=== PATIENT | female | born 1995 | race Caucasian/White ===

== ENCOUNTER 2018-11-08 02:19 | Emergency (ER) | payer OTHER ==
[2018-11-08] MEDS ORDERED: KETOROLAC 30 MG/ML 1 ML VIAL IVP STA (02:50)
[2018-11-08] MEDS ORDERED: SODIUM CHLORIDE 0.9% 1,000 ML IV ONE (02:50)
--- NOTE | 2018-11-08 03:07 | ED ---
ENT HPI - General Chief complaint: ENT Stated complaint: Joint Pain Source: patient Mode of arrival: ambulatory Limitations: no limitations - History of Present Illness Initial comments: Patient is a previously healthy 23yo who presents to the ER today for evaluation of generalized body aches, sore throat and malaise. Patient reports that yesterday during the day she began having body aches, she reports generalized aching of her entire body. This evening she reports again feeling febrile, her throat was sore she looked in the mirror noted that her tonsils seem to be enlarged she also felt that her neck seemed stiff. Review of Systems ROS Statement: Those systems with pertinent positive or pertinent negative responses have been documented in the HPI. ROS Other: All systems not noted in ROS Statement are negative. Past Medical History Additional Past Medical History / Comment(s): HEart murmur Past Surgical History: No Surgical Hx Reported Past Psychological History: Depression Smoking Status: Never smoker Past Alcohol Use History: None Reported Past Drug Use History: None Reported General Exam - General Exam Comments Initial Comments: Physical Exam GENERAL: Patient is well-developed and well-nourished. Appears mildly dehydrated HENT: Normocephalic, Atraumatic. TMs normal bilaterally Tonsillar hypertrophy, some white spots on the posterior oropharynx Full range of motion of the neck, no nuchal rigidity no meningeal signs EYES: PERRL, EOMI PULMONARY: Unlabored respirations. No audible rales rhonchi or wheezing was noted. CARDIOVASCULAR: There is a regular rate and rhythm without any murmurs gallops or rubs. ABDOMEN: Soft and nontender with normal bowel sounds. SKIN: Skin is clear with no lesions or rashes and otherwise unremarkable. : Deferred NEUROLOGIC: Patient is alert and oriented x3. Moving all extremities spontaneously MUSCULOSKELETAL: Normal extremities with adequate strength and full range of motion. No lower extremity swelling or edema. No calf tenderness. PSYCHIATRIC: Normal psychiatric evaluation. Limitations: no limitations Course Vital Signs 11/08/18 11/08/18 02:21 04:10 Temperature 98.5 F 97.9 F Pulse Rate 80 75 Respiratory 16 18 Rate Blood Pressure 130/86 117/73 O2 Sat by Pulse 98 98 Oximetry Medical Decision Making - Medical Decision Making The patient was seen and evaluated history is obtained from patient History and physical exam are concerning for viral syndrome, IV fluids and Toradol were ordered Strep swab was obtained An heterophile were negative however do have a high suspicion the patient may have mono. I discussed with the patient the possibility that she may have mono and that the heterophile test would not be positive for the first week or 2 after exposure. Patient's breast understanding of this. Importance of thrasher pportive care was discussed. Patient reported complete resolution of her body aches after IV fluids and Toradol and is comfortable with plan for discharge home. 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 No was provided. All questions pertaining care were answered return parameters were discussed patient was discharged home in stable condition. - Lab Data Result diagrams: 11/08/18 03:26 11/08/18 03:26 Lab Results 11/08/18 11/08/18 11/08/18 Range/Units 03:26 03:26 03:26 WBC 12.9 H (3.8-10.6) k/uL RBC 5.49 H (3.80-5.40) m/uL Hgb 16.2 H (11.4-16.0) gm/dL Hct 50.0 H (34.0-46.0) % MCV 91.1 (80.0-100.0) fL MCH 29.6 (25.0-35.0) pg MCHC 32.5 (31.0-37.0) g/dL RDW 13.8 (11.5-15.5) % Plt Count 243 (150-450) k/uL Neutrophils % 81 % Lymphocytes % 12 % Monocytes % 3 % Eosinophils % 3 % Basophils % 1 % Neutrophils # 10.5 H (1.3-7.7) k/uL Lymphocytes # 1.5 (1.0-4.8) k/uL Monocytes # 0.4 (0-1.0) k/uL Eosinophils # 0.3 (0-0.7) k/uL Basophils # 0.1 (0-0.2) k/uL Sodium 137 (137-145) mmol/L Potassium (3.5-5.1) mmol/L Chloride 101 (98-107) mmol/L Carbon Dioxide 25 (22-30) mmol/L Anion Gap 11 mmol/L BUN 10 (7-17) mg/dL Creatinine 0.70 (0.52-1.04) mg/dL Est GFR (CKD-EPI)AfAm >90 (>60 ml/min/1.73 sqM) Est GFR (CKD-EPI)NonAf >90 (>60 ml/min/1.73 sqM) Glucose 82 (74-99) mg/dL Calcium 9.8 (8.4-10.2) mg/dL Total Bilirubin 2.0 H (0.2-1.3) mg/dL AST 61 H (14-36) U/L ALT 22 (9-52) U/L Alkaline Phosphatase 50 (38-126) U/L Total Protein 9.2 H (6.3-8.2) g/dL Albumin 5.4 H (3.5-5.0) g/dL Heterophile Antibody Negative (Negative) Group A Strep Rapid (Negative) 11/08/18 Range/Units 03:26 WBC (3.8-10.6) k/uL RBC (3.80-5.40) m/uL Hgb (11.4-16.0) gm/dL Hct (34.0-46.0) % MCV (80.0-100.0) fL MCH (25.0-35.0) pg MCHC (31.0-37.0) g/dL RDW (11.5-15.5) % Plt Count (150-450) k/uL Neutrophils % % Lymphocytes % % Monocytes % % Eosinophils % % Basophils % % Neutrophils # (1.3-7.7) k/uL Lymphocytes # (1.0-4.8) k/uL Monocytes # (0-1.0) k/uL Eosinophils # (0-0.7) k/uL Basophils # (0-0.2) k/uL Sodium (137-145) mmol/L Potassium (3.5-5.1) mmol/L Chloride (98-107) mmol/L Carbon Dioxide (22-30) mmol/L Anion Gap mmol/L BUN (7-17) mg/dL Creatinine (0.52-1.04) mg/dL Est GFR (CKD-EPI)AfAm (>60 ml/min/1.73 sqM) Est GFR (CKD-EPI)NonAf (>60 ml/min/1.73 sqM) Glucose (74-99) mg/dL Calcium (8.4-10.2) mg/dL Total Bilirubin (0.2-1.3) mg/dL AST (14-36) U/L ALT (9-52) U/L Alkaline Phosphatase (38-126) U/L Total Protein (6.3-8.2) g/dL Albumin (3.5-5.0) g/dL Heterophile Antibody (Negative) Group A Strep Rapid Negative (Negative) Disposition Clinical Impression: Viral syndrome, Elevated transaminase level, Leukocytosis Disposition: HOME SELF-CARE Condition: Stable Instructions (If sedation given, give patient instructions): Mononucleosis (ED) Is patient prescribed a controlled substance at d/c from ED?: No Referrals: Mara Chun MD [Primary Care Provider] - 1-2 days
[2018-11-08 03:42] LABS: Basophils # (A) 0.1 k/uL (0-0.2); Basophils % (A) 1 %; Eosinophils # (A) 0.3 k/uL (0-0.7); Eosinophils % (A) 3 %; HGB 16.2 gm/dL (11.4-16.0); Lymphocytes # (A) 1.5 k/uL (1.0-4.8); Lymphocytes % (A) 12 %; MCH 29.6 pg (25.0-35.0); MCHC 32.5 g/dL (31.0-37.0); MCV 91.1 fL (80.0-100.0); Mean Platelet Volume 7.5; Monocytes # (A) 0.4 k/uL (0-1.0); Monocytes % (A) 3 %; Neutrophils # (A) 10.5 k/uL (1.3-7.7); Neutrophils % (A) 81 %; Platelet Count 243 k/uL (150-450); RBC 5.49 m/uL (3.80-5.40); RDW 13.8 % (11.5-15.5); WBC 12.9 k/uL (3.8-10.6)
[2018-11-08 03:45] LABS: ALT 22 U/L (9-52); AST 61 U/L (14-36); African American GFR (CKD) >90 (>60 ml/min/1.73 sqM); Albumin 5.4 g/dL (3.5-5.0); Alkaline Phosphatase 50 U/L (38-126); Anion Gap 11 mmol/L; Blood Urea Nitrogen 10 mg/dL (7-17); Calcium 9.8 mg/dL (8.4-10.2); Carbon Dioxide 25 mmol/L (22-30); Chloride 101 mmol/L (98-107); Glucose 82 mg/dL (74-99); Non-African American GFR(CKD) >90 (>60 ml/min/1.73 sqM); Sodium 137 mmol/L (137-145); Total Protein 9.2 g/dL (6.3-8.2)
[2018-11-08 04:11] VITALS: BP 117/73; PULSE 75; RESP 18; TEMP 97.9
== END 2018-11-08 04:39 | disposition home or self-care (01) ==
LOC: EC 02:19
DX: B34.9 Viral infection, unspecified (principal); R74.0 Nonspecific elevation of levels of transaminase and lactic acid dehydrogenase [LDH]
CPT/HCPCS: 99283 ×2; 96374 ×2; 96361 ×2; 36415; 80053; 85025; 86308; 87081; 87430; J1885

== ENCOUNTER 2021-07-04 12:14 | Day surgery (SDC) | payer OTHER ==
[2021-06-30 11:05] VITALS: BMI 21.6
[~2021-07-04 12:14] MED LIST: LACTATED RINGERS 1,000 ML IV SCH
[2021-07-04 12:36] VITALS: TEMP 98.1
[2021-07-04] MEDS ORDERED: PROPOFOL 10 MG/ML 20 ML VIAL IV ONE (12:43)
[2021-07-04] MEDS ORDERED: LIDOCAINE 1% INJ 10MG/ML (20 ML MDV) ONE (12:43)
--- NOTE | 2021-07-04 13:01 | P.GSHP ---
History of Present Illness H&P Date: 07/04/21 Chief Complaint: GI bleed Gthis a 25-year-old female who presents today for colonoscopy. She's had issues with intermittent rectal bleeding and anal pain. Past Medical History Past Medical History: Hyperlipidemia, Skin Disorder Additional Past Medical History / Comment(s): Diarrhea, blood on toilet tissue and pain with bowel movements on and off X2-3 yrs. Heart murmur. Hyperlipidemia resolved. "Get hives easily". History of Any Multi-Drug Resistant Organisms: None Reported Past Surgical History: No Surgical Hx Reported Additional Past Surgical History / Comment(s): [place] teeth, ingrown toenail surgery multiple times. Past Anesthesia/Blood Transfusion Reactions: Previous Problems w/ Anesthesia Additional Past Anesthesia/Blood Transfusion Reaction / Comment(s): Mom "needs more than standard dose". 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 Smoking Status: Never smoker Past Alcohol Use History: Occasional Past Drug Use History: Marijuana Additional Drug Use History / Comment(s): Rare Marijuana use, none in 6 months. - Past Family History Mother Family Medical History: No Reported History Medications and Allergies Home Medications Medication Instructions Recorded Confirmed Type Biotin 10,000 mcg PO DAILY 06/30/21 06/30/21 History Control Pill 1 tab PO DAILY 06/30/21 07/04/21 History Cetirizine HCl [Zyrtec] 10 mg PO DAILY 06/30/21 07/04/21 History Multivit with Calcium,Iron,Min 1 each PO DAILY 06/30/21 06/30/21 History [Women's Multivitamin] Sertraline HCl [Zoloft] 75 mg PO DAILY 06/30/21 07/04/21 History Allergies Allergy/AdvReac Type Severity Reaction Status Date / Time No Known Allergies Allergy Verified 06/30/21 10:48 Surgical - Exam Vital Signs Temp Pulse Resp BP Pulse Ox 98.1 F 67 16 132/82 99 07/04/21 12:34 07/04/21 12:34 07/04/21 12:34 07/04/21 12:34 07/04/21 12:34 - General well developed, well nourished, no distress - Eyes PERRL - ENT normal pinna - Neck no masses - Respiratory normal expansion - Cardiovascular Rhythm: regular - Abdomen Abdomen: soft, non tender Assessment and Plan Assessment: history of GI bleed. We'll perform colonoscopy
--- NOTE | 2021-07-04 13:03 | P.OP ---
Date of Procedure: 07/04/21 Preoperative Diagnosis: GI bleed Postoperative Diagnosis: normal colon Procedure(s) Performed: colonoscopy Anesthesia: MAC Surgeon: Matias Blackwell Pathology: none sent Condition: stable Disposition: PACU Description of Procedure: the patient's placed on the endoscopy table in the lateral position. She r eceived IV sedation. Digital rectal exam was performed. This revealed no abnormalities. The flexible colonoscope was then placed patient anus passed throughout the entire colon. The ileocecal valve was vnot visualized secondary to tortuosity valve. Several times made to maneuver the scope into the cecum however this impossible. Scope withdrawn. The ascending colon, transverse colon and descending colon and sigmoid colon appeared normal. Scope was brought back the rectum and this was normal. Scope withdrawn for patient.
[2021-07-04 13:24] VITALS: BP 117/76; PULSE 61; RESP 16
== END 2021-07-04 13:45 | disposition home or self-care (01) ==
LOC: ORWHC2ENDO 12:14
PROVIDERS: ATTEND Surgery
DX: K62.5 Hemorrhage of anus and rectum (principal); E78.5 Hyperlipidemia, unspecified; F32.A Depression, unspecified; Z98.890 Other specified postprocedural states; Z79.3 Long term (current) use of hormonal contraceptives; Z79.899 Other long term (current) drug therapy
CPT/HCPCS: 81025; 45378; J2001; J2704

== ENCOUNTER 2021-10-26 09:21 | Emergency (ER) | payer OTHER ==
[2021-10-26] MEDS ORDERED: SODIUM CHLORIDE 0.9% 2,000 ML IV STA (10:59)
[2021-10-26 13:12] LABS: Basophils % (A) 0 %; Eosinophils # (A) 0.1 k/uL (0-0.7); Eosinophils % (A) 1 %; HCT 44.8 % (34.0-46.0); HGB 14.6 gm/dL (11.4-16.0); Lymphocytes # (A) 1.7 k/uL (1.0-4.8); Lymphocytes % (A) 23 %; MCH 29.9 pg (25.0-35.0); MCHC 32.5 g/dL (31.0-37.0); MCV 91.8 fL (80.0-100.0); Mean Platelet Volume 7.2; Monocytes # (A) 0.4 k/uL (0-1.0); Monocytes % (A) 5 %; Neutrophils # (A) 5.1 k/uL (1.3-7.7); Neutrophils % (A) 68 %; Platelet Count 331 k/uL (150-450); RBC 4.87 m/uL (3.80-5.40); RDW 12.7 % (11.5-15.5); WBC 7.6 k/uL (3.8-10.6)
[2021-10-26 13:33] LABS: ALT 19 U/L (4-34); AST 29 U/L (14-36); African American GFR (CKD) >90 (>60 ml/min/1.73 sqM); Albumin 4.3 g/dL (3.5-5.0); Alkaline Phosphatase 49 U/L (38-126); Anion Gap 13 mmol/L; Blood Urea Nitrogen 9 mg/dL (7-17); Calcium 9.6 mg/dL (8.4-10.2); Carbon Dioxide 23 mmol/L (22-30); Chloride 101 mmol/L (98-107); Glucose 75 mg/dL (74-99); Lipase 69 U/L (23-300); Magnesium 1.8 mg/dL (1.6-2.3); Non-African American GFR(CKD) >90 (>60 ml/min/1.73 sqM); Potassium 4.1 mmol/L (3.5-5.1); Sodium 137 mmol/L (137-145); Total Bilirubin 0.2 mg/dL (0.2-1.3)
--- NOTE | 2021-10-26 13:49 | ED ---
Nausea/Vomiting/Diarrhea HPI - General Chief complaint: Nausea/Vomiting/Diarrhea Stated complaint: diarrhea, recently out of country Time Seen by Provider: 10/26/21 10:42 Source: patient Mode of arrival: ambulatory Limitations: no limitations - History of Present Illness Initial comments: Patient is a 26-year-old otherwise healthy female who presents to the emergency department with a chief complaint of diarrhea. Patient states she was in [facility] for mission trip and returned when she started to experience diarrhea. Patient reports 3-5 episodes of diarrhea for the past 3 days. Describes it as loose and watery. Denies blood in the stool. Has been taking loperamide at home with some relief. Reports a BRAT diet and drinking Pedialyte.. Denies fever, chills, nausea, vomiting, abdominal pain. Denies recent antibiotic use. Patient states during her trip she only drank purified water. - Related Data Home Medications Medication Instructions Recorded Confirmed Biotin 10,000 mcg PO DAILY 06/30/21 10/26/21 Cetirizine HCl [Zyrtec] 10 mg PO DAILY 06/30/21 10/26/21 Multivit with Calcium,Iron,Min 1 each PO DAILY 06/30/21 10/26/21 [Women's Multivitamin] Sertraline HCl [Zoloft] 75 mg PO DAILY 06/30/21 10/26/21 [place] Fe 1 tab PO DAILY 10/26/21 10/26/21 Previous Rx's Medication Instructions Recorded Ciprofloxacin HCl [Cipro] 750 mg PO DAILY #3 tab 10/26/21 Allergies Allergy/AdvReac Type Severity Reaction Status Date / Time No Known Allergies Allergy Verified 10/26/21 09:25 Review of Systems ROS Statement: Those systems with pertinent positive or pertinent negative responses have been documented in the HPI. ROS Other: All systems not noted in ROS Statement are negative. Past Medical History Past Medical History: Hyperlipidemia, Skin Disorder Additional Past Medical History / Comment(s): Diarrhea, blood on toilet tissue and pain with bowel movements on and off X2-3 yrs. Heart murmur. Hyperlipidemia resolved. "Get hives easily". History of Any Multi-Drug Resistant Organisms: None Reported Past Surgical History: No Surgical Hx Reported Additional Past Surgical History / Comment(s): [place] teeth, ingrown toenail surgery multiple times. Past Anesthesia/Blood Transfusion Reactions: Previous Problems w/ Anesthesia Additional Past Anesthesia/Blood Transfusion Reaction / Comment(s): Mom "needs more than standard dose". Past Psychological History: Depression Smoking Status: Never smoker Past Alcohol Use History: Occasional Past Drug Use History: Marijuana - Past Family History Mother Family Medical History: No Reported History General Exam Limitations: no limitations General appearance: alert, in no apparent distress Head exam: Present: atraumatic, normocephalic, normal inspection Eye exam: Present: normal appearance, PERRL, EOMI. Absent: scleral icterus, conjunctival injection, periorbital swelling Respiratory exam: Present: normal lung sounds bilaterally. Absent: respiratory distress, wheezes, rales, rhonchi, stridor Cardiovascular Exam: Present: regular rate, normal rhythm, normal heart sounds. Absent: systolic murmur, diastolic murmur, rubs, gallop, clicks GI/Abdominal exam: Present: soft, normal bowel sounds. Absent: distended, tenderness, guarding, rebound, rigid Neurological exam: Present: alert, oriented X3, CN II-XII intact Psychiatric exam: Present: normal affect, normal mood Skin exam: Present: warm, dry, intact, normal color. Absent: rash Course Vital Signs 10/26/21 10/26/21 09:22 15:46 Temperature 98.3 F 98.7 F Pulse Rate 73 88 Respiratory 20 18 Rate Blood Pressure 124/80 122/70 O2 Sat by Pulse 99 100 Oximetry Medical Decision Making - Medical Decision Making This is a 26 -year-old female who presents with diarrhea after recent travel. Thorough history and examination were performed. Patient is well-appearing. Vital stable. No abdominal pain. No fever or blood in the stool. Laboratory studies obtained and are within normal limits. Patient received large fluid bolus in the emergency department. She was unable to give a bowel movement. Patient will be discharged with outpatient prescription for stool culture, fecal leukocytes, and ova/parasites. I will empirically treat patient for traveler's diarrhea. Return parameters discussed. Patient verbalizes understanding and is agreeable to plan. Patient did return to the emergency department with her stool sample which was sent to lab. Pending results. Dr. Vásquez is my attending. - Lab Data Result diagrams: 10/26/21 12:23 10/26/21 12:23 Lab Results 10/26/21 10/26/21 Range/Units 12:23 12:23 WBC 7.6 (3.8-10.6) k/uL RBC 4.87 (3.80-5.40) m/uL Hgb 14.6 (11.4-16.0) gm/dL Hct 44.8 (34.0-46.0) % MCV 91.8 (80.0-100.0) fL MCH 29.9 (25.0-35.0) pg MCHC 32.5 (31.0-37.0) g/dL RDW 12.7 (11.5-15.5) % Plt Count 331 (150-450) k/uL MPV 7.2 Neutrophils % 68 % Lymphocytes % 23 % Monocytes % 5 % Eosinophils % 1 % Basophils % 0 % Neutrophils # 5.1 (1.3-7.7) k/uL Lymphocytes # 1.7 (1.0-4.8) k/uL Monocytes # 0.4 (0-1.0) k/uL Eosinophils # 0.1 (0-0.7) k/uL Basophils # 0.0 (0-0.2) k/uL Sodium 137 (137-145) mmol/L Potassium 4.1 (3.5-5.1) mmol/L Chloride 101 (98-107) mmol/L Carbon Dioxide 23 (22-30) mmol/L Anion Gap 13 mmol/L BUN 9 (7-17) mg/dL Creatinine 0.86 (0.52-1.04) mg/dL Est GFR (CKD-EPI)AfAm >90 (>60 ml/min/1.73 sqM) Est GFR (CKD-EPI)NonAf >90 (>60 ml/min/1.73 sqM) Glucose 75 (74-99) mg/dL Calcium 9.6 (8.4-10.2) mg/dL Magnesium 1.8 (1.6-2.3) mg/dL Total Bilirubin 0.2 (0.2-1.3) mg/dL AST 29 (14-36) U/L ALT 19 (4-34) U/L Alkaline Phosphatase 49 (38-126) U/L Total Protein 7.0 (6.3-8.2) g/dL Albumin 4.3 (3.5-5.0) g/dL Lipase 69 (23-300) U/L Disposition Clinical Impression: Diarrhea, Recent foreign travel Disposition: HOME SELF-CARE Condition: Good Instructions (If sedation given, give patient instructions): Acute Diarrhea (ED) Additional Instructions: Take stools culture prescription to any lab. Have results sent to your primary care provider as listed on the prescription. Take antibiotic as directed. Continue to drink Pedialyte and Gatorade. Continue with food that is gentle on the stomach. Follow-up with primary care provider in one to 2 days. Return to the emergency department if you experience new, concerning, or worsening symptoms. Prescriptions: Ciprofloxacin HCl [Cipro] 750 mg PO DAILY #3 tab Is patient prescribed a controlled substance at d/c from ED?: No Referrals: Mara Chun MD [Primary Care Provider] - 1-2 days Time of Disposition: 13:49
[2021-10-26 15:48] VITALS: BP 122/70; PULSE 88; RESP 18; TEMP 98.7
== END 2021-10-26 15:48 | disposition home or self-care (01) ==
LOC: EC 09:21
DX: R19.7 Diarrhea, unspecified (principal); E78.5 Hyperlipidemia, unspecified
CPT/HCPCS: 36415; 80053; 83630; 83690; 83735; 85025; 87045; 87046; 96360; 96361; 99284